=== PATIENT | female | born 1955 | race Caucasian/White ===

== ENCOUNTER → 2023-03-30 | Outpatient (CLI) | payer MEDICARE ==
[~2023-03-30] MED LIST: Albuterol 0.083% Neb Soln 2.5 MG/3 ML UD IH ONE
[2023-03-30 12:02] LABS: ARTERIAL BLD GAS O2 SATURATION 92.3 % (92-100); ARTERIAL BLD GAS TCO2 CT 34.6; ARTERIAL BLOOD GAS BASE EXCESS 6.4 (-2-2); ARTERIAL BLOOD GAS HCO3 32.9 meq/L (22-26); ARTERIAL BLOOD GAS PCO2 56.4 mmHg (35-45); ARTERIAL BLOOD GAS PO2 67.4 mmHg (80-100); ARTERIAL BLOOD GAS pH 7.38 (7.35-7.45)
[2023-04-02 19:03] LABS: C-ANCA 34 U/mL (0-99)
[2023-04-07 19:10] LABS: ANGIOTENSIN CONVERTING ENZYME 27 U/L (14-82)
== END ==
LOC: COL.RAD 10:47 → COL.LAB 10:47 → COL.RAD 11:00
PROVIDERS: Internal Medicine Pulmonary Disease
DX: J96.11 Chronic respiratory failure with hypoxia (principal)
CPT/HCPCS: A9540-JZ; A9567-JZ

== ENCOUNTER → 2023-06-28 | Outpatient (CLI) | payer MEDICARE ==
[2023-06-28 10:27] LABS: ARTERIAL BLOOD GAS PCO2 44.9 mmHg (35-45); ARTERIAL BLOOD GAS pH 7.43 (7.35-7.45)
[2023-06-28 10:28] LABS: ARTERIAL BLD GAS O2 SATURATION 92.6 % (92-100); ARTERIAL BLOOD GAS BASE EXCESS 4.4 (-2-2); ARTERIAL BLOOD GAS HCO3 29.2 meq/L (22-26); ARTERIAL BLOOD GAS PO2 65.8 mmHg (80-100)
[2023-06-29 18:04] LABS: C-ANCA 30 U/mL (0-99)
== END ==
LOC: COL.LAB 09:42 → COL.CARD 09:42
PROVIDERS: Internal Medicine Pulmonary Disease
DX: J96.11 Chronic respiratory failure with hypoxia (principal)